=== PATIENT | female | born 2000 | race Caucasian/White ===

== ENCOUNTER 2020-12-29 22:59 | Emergency (ER) | payer OTHER ==
[2020-12-30 02:12] LABS: HEMOGLOBIN 14.7 gm/dl (12.3-15.3); RED BLOOD COUNT 4.96 M/UL (4.00-5.10); WHITE BLOOD COUNT 14.3 K/UL (4.5-11.0)
[2020-12-30 02:34] LABS: BUN/CREATININE RATIO 18 (0-10)
[2020-12-30] MEDS ORDERED: IBUPROFEN800 MG PO (05:53)
[2020-12-30] MEDS ORDERED: MACRODANTIN100 MG PO (05:53)
[2020-12-30] MEDS ORDERED: ZOFRAN 4 MG TAB4 MG PO (05:53)
[2020-12-30] MEDS ORDERED: PYRIDIUM200 MG PO (05:53)
== END 2020-12-30 05:54 | disposition home or self-care (01) ==
LOC: ER1 22:59
PROVIDERS: Emergency Medicine
DX: N30.90 Cystitis, unspecified without hematuria (principal); I10 Essential (primary) hypertension
CPT/HCPCS: 71045; 80053; 81001; 82550; 82553; 84484; 84703; 85025; 96372; 99284